=== PATIENT | female | born 1995 | race Caucasian/White ===

== ENCOUNTER 2017-05-15 14:50 | Emergency (ER) | payer OTHER, SELFPAY ==
[2017-05-15 14:52] VITALS: BP 175/93; PULSE 79; RESP 14; TEMP 37.2; O2SAT 100; BMI 24.6
--- NOTE | 2017-05-15 15:34 | ED.RN ---
PT STATES SHE HAD A BM AND FEELS BETTER SO SHE DECIDED TO GO HOME.
== END 2017-05-15 15:48 | disposition left against medical advice (07) ==
LOC: ED 15:39
PROVIDERS: Emergency Provider Emergency Medicine; Family Provider Student in an Organized Health Care Education/Training Program; PCP Student in an Organized Health Care Education/Training Program
DX: R10.9 Unspecified abdominal pain (principal)

== ENCOUNTER → 2019-05-12 15:12 | Outpatient (CLI) | payer OTHER, SELFPAY | PROVIDERS: Visit Provider Obstetrics & Gynecology | DX: Z12.4 Encounter for screening for malignant neoplasm of cervix (principal) | CPT/HCPCS: 88175; G0145 ==

== ENCOUNTER → 2020-08-04 13:00 | Outpatient (CLI) | payer OTHER, SELFPAY | PROVIDERS: Visit Provider Obstetrics & Gynecology | DX: Z12.4 Encounter for screening for malignant neoplasm of cervix (principal) | CPT/HCPCS: 88175; G0145 ==

== ENCOUNTER → 2021-08-24 | Outpatient (CLI) | payer OTHER, SELFPAY | END | disposition home or self-care (01) | LOC: LABSPEC 13:50 | PROVIDERS: Visit Provider Obstetrics & Gynecology | DX: Z12.4 Encounter for screening for malignant neoplasm of cervix (principal) | CPT/HCPCS: 88175; G0145 ==